=== PATIENT | male | born 1950 | race Caucasian/White ===

== ENCOUNTER 2019-12-18 12:53 | Outpatient (CLI) | payer MEDICARE, OTHER | END 2019-12-18 23:59 | disposition home or self-care (01) | LOC: CFH 12:53 | PROVIDERS: ATTEND Radiology Diagnostic Radiology | DX: Z12.2 Encounter for screening for malignant neoplasm of respiratory organs (principal); R05 Cough; R22.43 Localized swelling, mass and lump, lower limb, bilateral; J43.2 Centrilobular emphysema; I25.10 Atherosclerotic heart disease of native coronary artery without angina pectoris; Z87.891 Personal history of nicotine dependence | CPT/HCPCS: 93970; G0297 ==